=== PATIENT | male | born 1990 | race Caucasian/White ===

== ENCOUNTER 2017-03-31 05:04 | Emergency (ER) | payer OTHER ==
[2017-03-31] MEDS ORDERED: ALBUTEROL NEB 2.5 MG/3 ML INH STA (05:13)
[2017-03-31] MEDS ORDERED: predniSONE 20 MG TABLET PO STA (05:13)
--- NOTE | 2017-03-31 05:37 | ED Physician Documentation ---
PD HPI URI - Stated complaint Stated Complaint: DIFFICULTY BREATHING - Chief complaint Chief Complaint: Resp - History obtained from History obtained from: Patient - History of Present Illness Timing - onset: Yesterday Timing details: Gradual onset, Still present Associated symptoms: Productive cough. No: Fever Contributing factors: No: Sick contact Similar symptoms before: Work up / diagnostics Recently seen: Not recently seen - Additional information Additional information: Patient is a 27 year old male with a history of asthma as a child who is presenting to the emergency department for cough and chest tightness. patient states that he has been coughing for the last few days but today he woke up and his chest felt tight so he came in for evaluation. Upon initial evaluation in the emergency department patient was well appearing, in no distress with a productive cough. Review of Systems Constitutional: denies: Fever, Chills Eyes: denies: Decreased vision, Photophobia Ears: denies: Ear pain, Drainage/discharge Nose: denies: Congestion Throat: denies: Sore throat Cardiac: denies: Chest pain / pressure, Palpitations Respiratory: reports: Dyspnea, Cough, Wheezing GI: denies: Nausea, Vomiting : reports: Reviewed and negative Skin: reports: Reviewed and negative Musculoskeletal: denies: Neck pain, Back pain Neurologic: denies: Headache, Head injury Immunocompromised: denies: Immunocompromised PD PAST MEDICAL HISTORY - Present Medications Home Medications: Ambulatory Orders Medication Instructions Recorded Confirmed Albuterol Sulf [Ventolin Hfa 2 puffs INH Q4HR PRN #1 inhaler 03/31/17 Inhaler] Benzonatate [Tessalon Perle] 100 mg PO Q8HR #14 capsule 03/31/17 predniSONE [Prednisone] 40 mg PO DAILY 5 Days tablet 03/31/17 - Allergies Allergies/Adverse Reactions: Allergies Allergy/AdvReac Type Severity Reaction Status Date / Time No Known Drug Allergies Allergy Verified 03/31/17 05:18 PD ED PE NORMAL - Vitals Vital signs reviewed: Yes - General General: Alert and oriented X 3, No acute distress - HEENT HEENT: Atraumatic, PERRL - Neck Neck: Supple, no meningeal sign, No JVD - Cardiac Cardiac: RRR, No murmur - Abdomen Abdomen: Soft, Non tender, Non distended - Derm Derm: Normal color, Warm and dry, No rash - Extremities Extremities: No deformity, Normal ROM s pain, No calf tenderness / cord - Neuro Neuro: Alert and oriented X 3, No motor deficit, No sensory deficit, Normal speech Eye Opening: Spontaneous Motor: Obeys Commands Verbal: Oriented GCS Score: 15 PD ED PE EXPANDED - Respiratory Respiratory: Wheezing (minimal wheeze appreciated), Other (cough appreciated) Results - Vitals Vitals: Vital Signs - 24 hr 03/31/17 03/31/17 05:12 05:33 Temperature 36.0 C L Heart Rate 83 104 H Respiratory 18 17 Rate Blood Pressure 138/121 H 125/63 O2 Saturation 97 100 Oxygen O2 Source Room air - Rads (name of study) chest x-ray Radiology: Final report received, EMP read contemporaneously (elevated right hemidiaphragm ) PD MEDICAL DECISION MAKING - ED course Complexity details: reviewed old records, reviewed results, re-evaluated patient , considered differential, d/w patient ED course: Patient was seen and examined at bedside. Patient was treated with albuterol and prednisone. Chest x-ray was ordered. When patient return from imaging the results were reviewed. Patient had no sign of pneumonia. Patient required no further inpatient treatment ant was stable for discharge with outpatient follow up. Departure - Departure Disposition: Home, Self Care Clinical Impression: Bronchitis Condition: Good Instructions: ED Bronchitis Asthmatic Follow-Up: ADRIAN BARTH MD [Primary Care Provider] - Within 1 week Prescriptions: Albuterol Sulf [Ventolin Hfa Inhaler] 2 puffs INH Q4HR PRN #1 inhaler PRN Reason: Wheezing Benzonatate [Tessalon Perle] 100 mg PO Q8HR #14 capsule predniSONE [Prednisone] 40 mg PO DAILY 5 Days tablet Comments: Your diagnostics today were within normal limits. there was no sign of pneumonia and your symptoms are likely viral in nature. You have been prescribed steroids and albuterol to help with the inflammation. You can take the tessalon as needed for cough. You should follow up with your doctor if your symptoms persist. You may return to the emergency department at any time for new, worsening or uncontrollable symptoms. Forms: Activity restrictions
--- NOTE | 2017-03-31 05:59 | XRAY Report ---
EXAM: CHEST RADIOGRAPHY EXAM DATE: 03/31/2017 05:41 AM. CLINICAL HISTORY: Fever cough. COMPARISON: None. TECHNIQUE: 1 view. FINDINGS: Lungs/Pleura: No focal opacities evident. No pleural effusion. No pneumothorax. Mediastinum: Within exam limitations, the cardiomediastinal contour is normal. Other: None. IMPRESSION: Normal single view chest. [facility] Referring Provider Line: [phone] SITE ID: [id number]
[2017-03-31 06:07] VITALS: BP 119/69
== END 2017-03-31 06:08 | disposition home or self-care (01) ==
LOC: ED 05:04
DX: J40 Bronchitis, not specified as acute or chronic (principal)
CPT/HCPCS: 71045; 99283; J7512; J7613